=== PATIENT | male | born 1950 | race Caucasian/White ===

== ENCOUNTER 2018-06-11 10:55 | Inpatient (IN) ==
[2018-06-11] MEDS ORDERED: NITROGLYCERIN SL PRN (12:04)
[2018-06-11] MEDS ORDERED: ASPIRIN PO ONE (12:04)
[2018-06-11 12:15] LABS: BASO# 0.02 X1000 (0.0-0.2); BASO% 0.4 % (0.0-0.8); EOS# 0.14 X1000 (0.0-0.7); EOS% 2.8 % (0.0-10.0); HEMATOCRIT 45.1 % (42.0-52.0); HEMOGLOBIN 14.5 g/dL (14.0-18.0); LYMPH# 1.79 X1000 (1.2-3.4); LYMPH% 36.3 % (20.5-51.1); MCH 29.7 PG (27-31); MCHC 32.2 g/dL (33-37); MCV 92.2 FL (81-99); MONO# 0.66 X1000 (0.11-0.59); MONO% 13.4 % (1.7-9.3); MPV 10.8 FL (7.4-10.4); NEUT# 2.32 X1000 (1.4-6.5); NEUT% 47.1 % (42.2-75.2); PLT 179 X1000 (130-400); RBC 4.89 XMIL (4.7-6.1); RDW 15.1 % (11.5-14.5); WBC 4.93 X1000 (4.8-10.8)
--- NOTE | 2018-06-11 12:23 | EKG Report ---
Test Performed on : 06/11/2018 11:01:10 AM Test Reason : cp Blood Pressure : / mmHG Vent. Rate : 064 BPM Atrial Rate : 064 BPM P-R Int : 168 ms QRS Dur : 102 ms QT Int : 388 ms P-R-T Axes : 017 -15 059 degrees QTc Int : 400 ms Normal sinus rhythm. Minimal voltage criteria for LVH, may be normal variant Possible Anteroseptal infarct (cited on or before 21-APR-2011) Abnormal ECG When compared with ECG of 21-APR-2011 13:41, Questionable change in initial forces of Septal leads Unconfirmed Result
[2018-06-11 12:24] LABS: INR 0.9; PROTIME 12.9 Seconds (11.0-16.0); PTT 30.8 Seconds (22.3-41.8)
--- NOTE | 2018-06-11 12:24 | Diag Imaging Result Doc PS360 ---
CHEST-1 VIEW - 06/11/2018 INDICATION: cp COMPARISON: 09/15/2017 FINDINGS: The lungs are normally expanded and clear. Heart size and mediastinal contours are normal. No pneumothorax or pleural effusion. IMPRESSION: Negative exam. Electronically signed by Toi Au 06/11/2018 12:22 PM
[2018-06-11 12:36] LABS: AGAP 7; ALBUMIN 4.6 g/dL (3.5-5.0); ALKALINE PHOSPHATASE 35 U/L (32-122); BUN 8 mg/dL (8-22); CALCIUM 9.1 mg/dL (8.8-10.2); CHLORIDE 101 mmol/L (98-107); COSMO 281; CREATININE 0.8 mg/dL (0.7-1.2); ESTIMATED GFR > 60; GLUCOSE 95 mg/dL (70-104); GOT 19 U/L (10-34); GPT 11 U/L (10-44); SODIUM 142 mmol/L (136-145); TCO2 34 mmol/L (25-35); TOTAL BILIRUBIN 0.37 mg/dL (0.20-1.00); TOTAL PROTEIN 6.9 g/dL (6.3-8.3)
--- NOTE | 2018-06-11 14:28 | PROVIDER DOCUMENTATION ---
This chart was entered by Johanna Mercedes Scribe, acting as scribe for Dorian Simons MD. HPI-Chest Pain - General Chief Complaint: Chest Pain Stated Complaint: CHEST PAIN Time Seen by Provider: 06/11/18 11:12 Source: patient Allergies/Adverse Reactions: Patient Allergies Allergy/AdvReac Type Severity Reaction Status Date / Time No Known Allergies Allergy Verified 02/02/12 11:52 Home Medications: Home Medication List Medication Instructions Recorded Confirmed Last Taken Type Albuterol [Proventil] 4 mg PO TID PRN #30 tablet 02/02/12 Unknown Rx Hydrocodone/Acetaminophen [Lortab 1 each PO Q6H PRN #20 tablet 02/02/12 Unknown Rx 5-500 Tablet] Methylprednisolone [Medrol Dosepak] 4 mg PO DIRECTED #1 package 02/02/12 Unknown Rx Sulfamethoxazole/Trimethoprim 1 each PO BID #20 tablet 02/02/12 Unknown Rx [Bactrim Ds Tablet] - History of Present Illness-CP Nature of Presenting Problem: Patient is a 67 year old male who presents with chest pain that started yesterday. Denies radiation of pain and shortness of breath. States nausea. History of COPD. Reports taking a BC powder for pain this morning. Location: reports: central Chest Pain Radiation: reports: no radiation Quality of Pain: reports: pressure Severity in ED: mild Onset/Duration: 24 hours ago Timing: improving Context/Activities at Onset: reports: light activity Modifying Factors: improves with: nothing Associated Symptoms: reports: nausea Similar Symptoms Previously?: Yes Recently Seen Here or By Another Healthcare Provider: No Review of Systems - Adult - REVIEW OF SYSTEMS - ADULT Constitutional: reports: no symptoms reported. denies: chills, fever, fatique Eyes: reports: no symptoms reported Ears, Nose, Mouth & Throat: reports: no symptoms reported Cardiovascular: reports: see HPI, chest pain. denies: heart murmur, orthopnea Respiratory: reports: no symptoms reported Gastrointestinal: reports: see HPI, nausea. denies: abdominal pain, diarrhea, vomiting Genitourinary: reports: no symptoms reported Musculoskeletal: reports: no symptoms reported Integumentary: reports: no symptoms reported Neurological: reports: no symptoms reported Psychiatric: reports: no symptoms reported Endocrine: reports: no symptoms reported Hematologic/Lymphatic: reports: no symptoms reported Allergic/Immunologic: reports: no symptoms reported All Other Systems: Reviewed and Negative Past History - Adult - PAST MEDICAL HISTORY-ADULT Review of Records: reports: Nursing Assessment Review, Medications Reviewed, Social history reviewed & non-contributory. Major Childhood Illnesses: reports: denies history Cardiovascular: reports: denies history Respiratory: reports: denies history Gastrointestinal: reports: denies history Obstetrical/Gynecological: reports: denies history Genitourinary: reports: denies history Musculoskeletal: reports: denies history Neurological: reports: denies history Psychiatric: reports: denies history Endocrine/Immune: reports: denies history Other Conditions: reports: denies history - PRIOR SURGERIES/PROCEDURES Surgical/Procedure History: reports: tonsillectomy, orthopedic (extremity) (left foot) - IMMUNIZATION STATUS Childhood Immunizations: See Nurse Assessment Flu Vaccine: See Nurse Assessment - FAMILY HISTORY Family History: reviewed, not pertinent - SOCIAL HISTORY Smoking: cigarettes, greater than 1 pack/day Provider spent 3-5 mins advising pt. on dangers of tobacco.: Discussed manners to quit use, and f/u contacts for add'l counseling. Substance Use: denies Living Situation: family Physical Exam-General - PHYSICAL EXAM-ADULT Initial Vital Signs Reviewed: Yes - CONSTITUTIONAL General Appearance: alert, no apparent distress. negative: lethargic, slow to respond - HEAD, EARS, NOSE, MOUTH & THROAT HENMT: normal ENT inspection. negative: angioedema, hearing deficit - NECK Neck: normal inspection. negative: limited range of motion, tender midline - RESPIRATORY Respiratory: chest non-tender, lungs clear, normal breath sounds. negative: crackles, stridor - CARDIOVASCULAR Cardiovascular: normal peripheral pulses, regular rate, rhythm. negative: tachycardia, systolic murmur - GASTROINTESTINAL (ABDOMEN) Abdominal Exam: normal bowel sounds, non tender, soft. negative: rigid, rebound - MUSCULOSKELETAL Extremity: non-tender, normal inspection. negative: deformity, erythema - SKIN Integumentary: normal color, normal turgor, warm/dry. negative: ecchymosis, erythema, jaundice - NEUROLOGIC Neurologic: grossly normal. negative: aphasia, facial droop - PSYCHIATRIC Psych/Mental Status: normal mood/affect, oriented x 3. negative: tearful - HEART Score HEART Score: History: Moderately Suspicious HEART Score: ECG: Non-Specific Repolarization Disturbance/LBBB/PM HEART Score: Age: > or = 65 Years HEART Score: Risk Factors for Atherosclerotic Disease: 1 or 2 Risk Factors HEART Score: Troponin: < or = Normal Limit Total HEART Score:: 5 Progress - PLAN OF CARE/RESULTS Progress/Plan/Lab Results: Vital Signs - 8 hr 06/11/18 11:05 06/11/18 12:26 06/11/18 13:03 Temperature 97.7 F Pulse Rate 71 78 71 Respiratory Rate 20 21 17 Blood Pressure 162/84 108/74 123/85 O2 Sat by Pulse Oximetry 94 L 92 L 99 06/11/18 14:02 06/11/18 15:02 Temperature Pulse Rate 65 93 H Respiratory Rate 23 23 Blood Pressure 141/77 108/94 O2 Sat by Pulse Oximetry 97 96 Laboratory Results - last 24 hr 06/11/18 06/11/18 06/11/18 11:53 11:53 11:53 WBC 4.93 RBC 4.89 Hgb 14.5 Hct 45.1 MCV 92.2 MCH 29.7 MCHC 32.2 L RDW Std Deviation 15.1 H Plt Count 179 MPV 10.8 H Immature Gran % (Auto) 0.0 Neut % (Auto) 47.1 Lymph % (Auto) 36.3 Schleicher % (Auto) 13.4 H Eos % (Auto) 2.8 Baso % (Auto) 0.4 Immature Gran # (Auto) 0.00 Neut # (Auto) 2.32 Lymph # (Auto) 1.79 Schleicher # (Auto) 0.66 H Eos # (Auto) 0.14 Baso # (Auto) 0.02 PT INR PTT (Actin FS) Sodium 142 Potassium 5.0 Chloride 101 Carbon Dioxide 34 Anion Gap 7 BUN 8 Creatinine 0.8 Estimated GFR/1.73 m2 > 60 BUN/Creatinine Ratio 10 Glucose 95 Calculated Osmolality 281 Calcium 9.1 Total Bilirubin 0.37 AST 19 ALT 11 Alkaline Phosphatase 35 Troponin T Jcn-A-Ffiajsawlek Pept 90 Total Protein 6.9 Albumin 4.6 Globulin 2.3 Albumin/Globulin Ratio 2.0 06/11/18 06/11/18 11:53 11:53 WBC RBC Hgb Hct MCV MCH MCHC RDW Std Deviation Plt Count MPV Immature Gran % (Auto) Neut % (Auto) Lymph % (Auto) Schleicher % (Auto) Eos % (Auto) Baso % (Auto) Immature Gran # (Auto) Neut # (Auto) Lymph # (Auto) Schleicher # (Auto) Eos # (Auto) Baso # (Auto) PT 12.9 INR 0.90 PTT (Actin FS) 30.8 Sodium Potassium Chloride Carbon Dioxide Anion Gap BUN Creatinine Estimated GFR/1.73 m2 BUN/Creatinine Ratio Glucose Calculated Osmolality Calcium Total Bilirubin AST ALT Alkaline Phosphatase Troponin T < 0.010 Hms-A-Vnmdslrxwns Pept Total Protein Albumin Globulin Albumin/Globulin Ratio Orders Category Date Time Status [facility] Routine AdmDCTranf 06/11/18 15:57 Active Nursing- MD Consult Request ROUTINE Care 06/11/18 15:57 Active Update & Confirm Home Medicati ROUTINE Care 06/11/18 15:58 Active Physician/Provider Consults Routine Cons 06/11/18 15:57 Ordered Heart Healthy Diet Diet 06/11/18 14:44 Active CHEST-1 VIEW [RAD] Stat Exams 06/11/18 12:03 Completed A1C HGB W EST AVG GLUCOSE [CHEM] Routine Lab 06/12/18 06:00 Ordered CBC WITH ELECTRONIC DIFF [HEME] Stat Lab 06/11/18 11:53 Completed CK PROFILE [SP CHEM] Q8H Lab 06/11/18 16:04 Received CK PROFILE [SP CHEM] Q8H Lab 06/12/18 00:00 Ordered CK PROFILE [SP CHEM] Q8H Lab 06/12/18 08:00 Ordered COMPREHENSIVE METABOLIC PANEL [CHEM] Stat Lab 06/11/18 11:53 Completed PRO B-NATRIURETIC PEPTIDE Stat Lab 06/11/18 11:53 Completed PT [PROTIME WITH INR] [COAG] Stat Lab 06/11/18 11:53 Completed PTT [COAG] Stat Lab 06/11/18 11:53 Completed TROPONIN T Q8H Lab 06/11/18 16:04 Received TROPONIN T Q8H Lab 06/12/18 00:00 Ordered TROPONIN T Q8H Lab 06/12/18 08:00 Ordered TROPONIN T Stat Lab 06/11/18 11:53 Completed URINE DRUG SCREEN Stat Lab 06/11/18 15:59 Uncollected Acetaminophen [Tylenol] Med 06/11/18 15:57 Active 650 mg PO Q6H PRN PRN Albuterol 2.5MG/Ipratrop 0.5MG [Duoneb (A & A)] Med 06/11/18 19:30 Active 3 ml INH RTQ4H.WA Aspirin Med 06/11/18 12:04 Discontinued 325 mg PO NOW ONE Budesonide [Pulmicort] Med 06/11/18 19:30 Active 0.5 mg INH RTBID Enoxaparin [Lovenox] Med 06/11/18 16:00 Active 40 mg SUBQ Q24H Morphine Med 06/11/18 15:57 Active See Dose Instructions IV Q5M PRN PRN Nitroglycerin Med 06/11/18 15:57 Discontinued 0.5 inch TOP NOW ONE Nitroglycerin Sl [Nitroglycerin] Med 06/11/18 12:04 Active 0.4 mg SL Q5M PRN PRN Ondansetron [Zofran] Med 06/11/18 15:57 Active 4 mg IV Q4H PRN PRN Pantoprazole [Protonix] Med 06/11/18 16:00 Active 40 mg IV Q12H Sodium Chloride 0.9% Med 06/11/18 16:00 Active 10 ml INJ DIRECTED Aerosol Treatments Routine Oth 06/11/18 15:58 Active Aerosol Treatments Stat Oth 06/11/18 15:58 Active EKG [EKG] Stat Ther 06/11/18 12:03 Draft Echo Spec/Color Dop W/O Contra Routine Ther 06/11/18 15:57 Ordered Transfer/Admit Order [TRANSFER] Routine Transfer 06/11/18 15:52 Ordered Result Diagrams: 06/11/18 11:53 06/11/18 11:53 - REASSESSMENT Reassessment #1 Time Reassessed: 14:21 Status: other (patient's chest pain improved with nitro. patient's O2 sat dropped to 88% on room air while talking. patient was placed on 2 L nasal cannula.) - EKG 1 Time of EKG reading by physician:: 11:01 EKG Read and Signed by:: Dorian Simons EKG Interpretation (*Must complete 3 of following elements*): Abnormal Rate: 64 Rhythm: normal sinus rhythm QRS: LVH LA Interval: normal Comments: possible anteroseptal infarct, age undetermined 2 Time of EKG reading by physician:: 16:26 EKG Read and Signed by:: Dorian Simons EKG Interpretation (*Must complete 3 of following elements*): Abnormal Rate: 62 Rhythm: normal sinus rhythm LA Interval: normal Comments: cannot rule out anteroseptal infarct, age undetermined - XRAY 1 XRAY Study: Chest Impression: See EMR Report ( CHEST-1 VIEW - 06/11/2018 INDICATION: cp COMPARISON: 09/15/2017 FINDINGS: The lungs are normally expanded and clear. Heart size and mediastinal contours are normal. No pneumothorax or pleural effusion. IMPRESSION: Negative exam. Electronically signed by Toi Au 06/11/2018 12:22 PM 06/11/18 1222 Interpreting Physician: Toi Au MD Dictated Date/Time: 06/11/18 1221 cc: Dorian Simons MD; Mulu Duarte MD) - CONSULTS/PCP/HOSPITALIST Notification #1 *Consult/PCP/Hospitalist*: RAY German for Hospitalist Time Discussed: 14:20 Reason/Comments: Dr. Simons consulted with Monserrat about patient. Consult Disposition: Will see in ED, Admit Departure - Departure Date of Disposition Decision: 06/11/18 Time of Disposition Decision: 14:20 DIAGNOSIS: Chest pain, COPD (chronic obstructive pulmonary disease) Disposition: ADMITTED INPATIENT 09 Certified Medical Emergency: Emergent Condition: Stable - Critical Care Note This patient required my direct & personal management of CC.: Yes Total Time (mins): 31 Critical Care Statement: This patient required my direct personal management to treat or rule out processes, the absence of which, could potentiallly result in sudden, clinically significant life or limb threatening deterioration. Attestation - Physician/ ERIC Attestation Patient care was provided by Advanced Practice Provider:: No The physician spent face to face time with patient:: Yes Advanced Practice Provider documentation review:: Supervising physician onsite and consulted in the evaluation and care of this patient. The physician did have a face to face encounter with the patient. This chart was documented by the indicated scribe, (Johanna Mercedes Scribe) and accurately reflects the services I performed and decisions made by me, Dorian Simons MD, as attested by the provider's signature.
[2018-06-11] MEDS ORDERED: MORPHINE IV PRN (15:57)
[2018-06-11] MEDS ORDERED: ZOFRAN IV PRN (15:57)
[2018-06-11] MEDS ORDERED: TYLENOL PO PRN (15:57)
[2018-06-11] MEDS ORDERED: NITROGLYCERIN TOP ONE (15:57)
[2018-06-11] MEDS ORDERED: SODIUM CHLORIDE 0.9% INJ SCH (16:00)
--- NOTE | 2018-06-11 16:32 | HISTORY AND PHYSICAL ---
PRIMARY CARE PROVIDER: Mulu Duarte MD. CHIEF COMPLAINT: Chest pain. HISTORY OF PRESENT ILLNESS: Mr. David Cooper is a 67-year-old male with a medical history of COPD, BPH, low testosterone, seasonal allergies, and GERD, is here with complaints of chest pain that started yesterday around noon. It was in the center of his chest. It did not radiate. It was a 8/10. It made him nauseated and the only thing he was doing when it started was sitting on a stool. He had not just eaten, and it lasted around 1-1/2 hours. He did not feel good last night so he did not go to [employer]. He stayed home. He went to bed early. He normally wakes up around 4 in the morning and he woke around 4:30 this morning. Not too long after walking up, he started having on and off chest pains all day described as just like it was the day before. Both times, he took ibuprofen which helped a little, and he also took a BC Powder, which seemed to help ease it up as well. He presented here around 11 a.m., was given a nitroglycerin tablet, which actually made his pain relieve. Per the ER physician that gave report stated that when he was at the bedside the O2 saturations would drop down to about 88%. The patient states he is not on home oxygen. He does have expiratory wheezes throughout but essentially negative chest x-ray result. Cardiac enzymes are negative. EKG with no real contiguous ST elevations but will consult Cardiology and get him scheduled for a stress tomorrow. He was instructed how important it is to stop smoking. PAST MEDICAL HISTORY: 1. COPD. 2. BPH. 3. Low testosterone. He gets testosterone shots every 2 weeks, the last one was 2 weeks ago. 4. Seasonal allergies. 5. GERD. PAST SURGICAL HISTORY: 1. He had scrotal surgery. 2. Left foot surgery. 3. Right foot steroid injections. 4. Right knee scoped. SOCIAL HISTORY: 1 pack per day smoker since the age of 12, 1-2 beers about once a week. . They go to [employer]. 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 FAMILY HISTORY: Mother's side positive for dementia. Father's side positive for hypertension and myocardial infarction but age unknown, and lupus. ALLERGIES: Z-Escobar, according to him. He states it made his skin itch and turn red. HOME MEDICATIONS: No home medications, other than he actually takes testosterone shots every 2 weeks. Actually, he may have home medications, they just have not been reconciled yet. REVIEW OF SYSTEMS: A 14-point review of systems are complete and all were negative except for those mentioned above in HPI. PHYSICAL EXAMINATION: VITAL SIGNS: Temperature 97.7, heart rate 93, respiratory rate 23, blood pressure 108/94, O2 saturation 96% on room air. GENERAL: Mr. David Cooper is a 67-year-old male. He is in no acute distress. He is able to answer questions appropriately. HEENT: Atraumatic, normocephalic. Pupils equal, round, and reactive to light. Extraocular movements intact. Mucous membranes are moist. NECK: Trachea midline. CARDIOVASCULAR: S1, S2, regular rate and rhythm. No rubs, gallops, or murmurs. No lower extremity edema, +2 dorsalis and radial pulses. Negative JVD or carotid bruits. PULMONARY: Clear to auscultate, bilateral breath sounds. No accessory muscle use or work of breathing noted. GASTROINTESTINAL: Soft, nontender, nondistended, positive bowel sounds x4. EXTREMITIES: Moves all extremities equally with full range of motion. NEUROLOGIC: A and O x3, follows commands. Sensory is intact. SKIN: Warm, dry, intact. LABORATORY DATA: White blood cells 4000, hemoglobin 14, hematocrit 45, platelet count 179. INR 0.90. PTT is 30.8. Sodium 142, potassium 5.0, BUN 8, creatinine 0.8, glucose 95, calcium 9.1, bilirubin 0.37, AST 19, ALT 11. Troponin less than 0.01. ProBNP 90. Albumin 4.6. IMAGING: Chest x-ray: Negative exam. EKG: Normal sinus rhythm, rate 64, QTc is 400, does not look like any ST elevations that I could tell. ASSESSMENT AND PLAN: 1. Atypical chest pain. He had chest pain yesterday for about an hour and a half and he has it on and off today, it is all mid sternal, it does not radiate, eased up after ibuprofen and BC Powder, but also eased up after he received nitroglycerin tablet. So, we will consult Cardiology, do serial cardiac enzymes, do an echocardiogram, and a stress test for tomorrow morning. Routine cardiac workup. 2. Chronic obstructive pulmonary disease. Will add nebulizers. There is no obvious exacerbation at this time. 3. Gastroesophageal reflux disease. Will do IV Protonix in case this is GI related. 4. Deep venous thrombosis prophylaxis, Lovenox. Dictated by RAY Olson for Eric Hassan MD cc: RAY Olson MD
[2018-06-11] MEDS: DUONEB (A & A) INH SCH ×2 (19:30→23:46)
[2018-06-11] MEDS: PULMICORT INH SCH (19:30)
[2018-06-11] MEDS: LOVENOX SUBQ SCH (19:45)
[2018-06-11] MEDS: PROTONIX IV SCH (19:50)
[2018-06-11 20:28] LABS: UR AMPHETAMINES QUAL NONE DETECTED (NONE DETECT); UR BARBITUATES QUAL NONE DETECTED (NONE DETECT); UR BENZODIAZEPIN QUAL NONE DETECTED (NONE DETECT); UR CANNABINOIDS QUAL NONE DETECTED (NONE DETECT); UR COCAINE QUAL NONE DETECTED (NONE DETECT); UR METHADONE QUAL NONE DETECTED (NONE DETECT); UR OPIATES QUAL NONE DETECTED (NONE DETECT); UR OXYCODONE QUAL NONE DETECTED (NONE DETECT); UR PCP QUAL NONE DETECTED (NONE DETECT)
[2018-06-12] MEDS: PROTONIX IV SCH ×2 (03:49→16:05)
[2018-06-12 06:10] LABS: INR 0.98; PROTIME 13.7 Seconds (11.0-16.0)
[2018-06-12 06:11] LABS: BASO# 0.01 X1000 (0.0-0.2); BASO% 0.2 % (0.0-0.8); EOS# 0.09 X1000 (0.0-0.7); EOS% 1.9 % (0.0-10.0); HEMATOCRIT 39.2 % (42.0-52.0); HEMOGLOBIN 12.1 g/dL (14.0-18.0); LYMPH# 1.58 X1000 (1.2-3.4); LYMPH% 34.1 % (20.5-51.1); MCH 29.8 PG (27-31); MCHC 30.9 g/dL (33-37); MCV 96.6 FL (81-99); MONO# 0.53 X1000 (0.11-0.59); MONO% 11.4 % (1.7-9.3); MPV 10.5 FL (7.4-10.4); NEUT# 2.42 X1000 (1.4-6.5); NEUT% 52.4 % (42.2-75.2); PLT 154 X1000 (130-400); PTT 35.4 Seconds (22.3-41.8); RBC 4.06 XMIL (4.7-6.1); WBC 4.63 X1000 (4.8-10.8)
[2018-06-12 06:17] LABS: HEMOGLOBIN A1C 5.2 % (4.8-6.0)
[2018-06-12 06:24] LABS: AGAP 7; ALB/GLOB RATIO 1.5; ALBUMIN 3.7 g/dL (3.5-5.0); ALKALINE PHOSPHATASE 28 U/L (32-122); BUN 12 mg/dL (8-22); CALCIUM 8.5 mg/dL (8.8-10.2); CHLORIDE 106 mmol/L (98-107); CHOLESTEROL 145 mg/dL (0-200); COSMO 290; CREATININE 0.8 mg/dL (0.7-1.2); ESTIMATED GFR > 60; GLUCOSE 91 mg/dL (70-104); GOT 15 U/L (10-34); GPT 10 U/L (10-44); HDL 38 mg/dL (35-55); LDL 85 mg/dL; MAGNESIUM 1.9 mg/dL (1.5-2.7); POTASSIUM 4.3 mmol/L (3.5-5.1); SODIUM 146 mmol/L (136-145); TCO2 33 mmol/L (25-35); TOTAL BILIRUBIN 0.29 mg/dL (0.20-1.00); TOTAL PROTEIN 6.2 g/dL (6.3-8.3); TRIGLYCERIDES 108 mg/dL (39-160); VLDL 22 mg/dL
--- NOTE | 2018-06-12 07:09 | EKG Report ---
Test Performed on : 06/11/2018 4:26:56 PM Test Reason : ED. NO EKG ORDER FOR MUSE Blood Pressure : / mmHG Vent. Rate : 062 BPM Atrial Rate : 062 BPM P-R Int : 180 ms QRS Dur : 088 ms QT Int : 392 ms P-R-T Axes : -25 -09 036 degrees QTc Int : 397 ms Normal sinus rhythm. Cannot rule out Anteroseptal infarct (cited on or before 21-APR-2011) Abnormal ECG When compared with ECG of 11-JUN-2018 11:01, (Unconfirmed) No significant change was found Unconfirmed Result
--- NOTE | 2018-06-12 08:11 | EKG Report ---
Test Performed on : 06/12/2018 06:41:54 AM Test Reason : chest pain Blood Pressure : / mmHG Vent. Rate : 061 BPM Atrial Rate : 061 BPM P-R Int : 180 ms QRS Dur : 098 ms QT Int : 420 ms P-R-T Axes : 044 031 059 degrees QTc Int : 422 ms Normal sinus rhythm. Anterior infarct (cited on or before 21-APR-2011) Abnormal ECG When compared with ECG of 11-JUN-2018 16:26, (Unconfirmed) No significant change was found Confirmed by Neo HARDIN, Jos ([id number]) on 06/12/2018 8:43:09 AM
--- NOTE | 2018-06-12 08:21 | Diag Imaging Result Doc PS360 ---
CHEST-2 VIEWS - 06/12/2018 INDICATION: Chest Pain COMPARISON: 06/11/2018 FINDINGS: The lungs are normally expanded and clear. Heart size and mediastinal contours are normal. No pneumothorax or pleural effusion. IMPRESSION: Negative exam. Electronically signed by Toi Au 06/12/2018 8:19 AM
[2018-06-12] MEDS: PULMICORT INH SCH ×2 (08:31→20:20)
[2018-06-12] MEDS: DUONEB (A & A) INH SCH ×5 (08:31→23:39)
--- NOTE | 2018-06-12 10:36 | Diag Imaging Result Doc PS360 ---
EXAM: CT THORAX W/O CONTRAST INDICATION: COPD/fci smoker TECHNIQUE: This exam was performed using automated exposure control, adjustment of mA or kV according to patient size, and/or use of iterative reconstruction technique. COMPARISON: None. FINDINGS: There is advanced pulmonary emphysema. There is subsegmental atelectasis and/or scarring at the lung bases. There is a 4 mm slightly nodular density in the left upper lobe on image 61 of series 3. This probably represents nodular scarring are minimal focal pneumonitis. Consider follow-up based on Fleischner Society criteria given the advanced emphysema. There is a second 5 mm somewhat groundglass nodular density in the right middle lobe on image 89 of series 3. There is no pleural fluid collection and no pneumothorax. There is no evidence of significant mediastinal lymphadenopathy. There is no cardiomegaly. There is mild atherosclerotic calcification at the aortic arch and coronary arteries. Limited views of the upper abdomen are essentially unremarkable. IMPRESSION: 1.Advanced pulmonary emphysema. 2.Minimal subsegmental atelectasis and/or scarring at the lung bases. 3.A couple of indeterminate subcentimeter nodules in the right middle lobe and left upper lobe as described. Consider follow-up based on Fleischner Society criteria. Electronically signed by Hayder Kruger 06/12/2018 10:34 AM
--- NOTE | 2018-06-12 10:51 | CARDIOLOGY CONSULTATION ---
DATE: 06/12/2018 REQUESTED PHYSICIAN: Hospitalist service. REASON FOR CONSULTATION: Chest pain. HISTORY: Mr. Cooper is a 67-year-old, male, who was in his usual state of health until June 10. 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 At about 12 noon, he developed a sharp pain associated with pressure in the lower anterior chest close to the sternal tip. At that time, he did not pay too much attention to it, he thought it was indigestion. He ate. Later on, he felt somewhat nauseous. Initially he felt like he was going to go to attend sikhism; however, after eating supper, he did not feel well, the pain came back and decided to rest. The next morning, he got up and felt fine. He went to get dressed and after getting dressed, he started having pain again and at that time, he took ibuprofen, took a nap, rested for a couple of hours and when he got up again, there was chest pain. At that time, he called his and they decided to come to the emergency room. He presented to the ER somewhere around 11:30 in the morning. They did a chest x- ray that shows no abnormalities. They did an EKG that shows questionable of septal scar, no acute ST changes. His troponins have been checked multiple times, 3, beginning at 11:53 in the morning on June 11, ending at midnight on June 12. All those numbers are negative. They have checked proBNP level twice, both are normal. BUN and creatinine are normal. His LDL cholesterol is 85, total cholesterol 145, HDL is 38, triglycerides 108. He is hemoglobin 12.1. The patient is feeling right now back to his normal self. I am seeing him on June 12 at 9:10 in the morning. He is chest pain-free. The primary service has requested a stress test on him. PAST MEDICAL HISTORY: Only positive for headaches and sinus allergies. PAST SURGICAL HISTORY: He broke his ankle or heel on the left side several years ago, had to wear a cast. No other major positive on his past history. SOCIAL HISTORY: He has been a smoker since he was 12 years old and at times he has smoked more than a pack a day. Currently he is smoking 1 pack a day, so he is like 43 years of smoking. He drinks occasionally beer. He is . He has 4 children with his with whom he has been to for 44 years. He also has 2 children from 2 other women. FAMILY HISTORY: Father of cancer. Mother of dementia. HOME MEDICATIONS: At this time he is not taking anything. ALLERGIES: Negative. REVIEW OF SYSTEMS: He has slowed down over the course of the years. Physically he gets more tired recently. He does not have exertional chest pain or significant exertional dyspnea. No other positives on his multiple systems check. The other thing that bothers him frequently is headaches. Dr.Sarah Duarte has been dealing with that. PHYSICAL EXAMINATION: Vital signs: Blood pressure is 99/56, temperature 97.6 degrees, pulse 65, respirations 16. General: He is awake, alert, oriented, in no distress. HEENT: Unremarkable. Chest: Clear to auscultation and percussion. Heart: Sounds regular and rhythmic. No gallop or murmur. Abdomen: Nontender, soft. Extremities: Show good pulses. No peripheral edema. Neurologic: Nonfocal. Moves 4 extremities. IMPRESSION: 1. Patient presenting with chest pain which is somewhat atypical. He has ruled out for myocardial infarction. His pro BNP level is normal. 2. Clinical evidence of chronic obstructive pulmonary disease. Both lungs show decreased breath sounds with hyperinflation hyper-resonance to percussion. 3. Long-term tobacco user. 4. Abnormal ECG with a question septal scar. RECOMMENDATION: At this time I agree with proceeding with a stress test using myocardial perfusion protocol. I will probably suggest to do a screening CT of the chest on him because of his long-term history of a smoker. Echocardiogram is probably a good idea to compliment the nuclear stress test. Further advice will be forthcoming. cc: Rhys Kenney MD MTDD
[2018-06-12] MEDS ORDERED: LEXISCAN ONE (11:33)
[2018-06-12] MEDS ORDERED: AMINOPHYLLINE ONE (11:40)
--- NOTE | 2018-06-12 14:01 | Diag Imaging Result Document ---
PROCEDURE NAME: MYOCARDIAL PERF SCAN, STR/REST - 06/12/2018 INDICATION FOR STUDY: Chest pain. PROCEDURES PERFORMED: 1. Lexiscan stress. 2. One-day stress rest myocardial perfusion imaging. PROCEDURE IN DETAIL: Mr. Cooper had a resting study with injection of 11.2 mCi of technetium-99m sestamibi with usual imaging protocol utilized. Subsequently, he was brought back and had a Lexiscan stress. At peak stress, was injected with 33.5 mCi of technetium-99m sestamibi with usual imaging protocol utilized. FINDINGS: LEXISCAN STRESS RESULTS: 1. Baseline EKG shows sinus bradycardia, suggestion of anterior septal Q-waves, possible LVH. 2. Lexiscan stress did not demonstrate any evidence of significant ischemic changes or significant arrhythmias. PERFUSION IMAGING RESULTS: 1. No evidence of abnormal extracardiac uptake. 2. TID ratio 0.94. 3. Perfusion imaging demonstrates what appears to be no clear evidence of ischemic type defects. There is a suggestion of some very mild soft tissue attenuation in the inferior base. Wall motion appears to be intact in this area. In addition, there is a little bit of gut uptake interfering with interpretation in that area. There are no ischemic changes. 4. Normal ejection fraction of 71%. The end-diastolic volume is 142, end systolic volume 41. Normal wall motion. cc: MD Monserrat Menendez CRNP
[2018-06-12] MEDS: LOVENOX SUBQ SCH (15:48)
--- NOTE | 2018-06-12 17:13 | PROGRESS NOTE ---
DATE: 06/12/2018 SUBJECTIVE: Patient resting in bed. OBJECTIVE: Vital signs: Temperature 97.7 degrees, pulse 63, respirations 16, blood pressure 107/57, oxygen saturation 98%. HEENT: Atraumatic, normocephalic. Cardiovascular: S1, S2. Respiratory: Has evidence of good entry bilaterally. Abdomen: Soft, nontender. No masses felt. Extremities: No evidence of edema. Central nervous system: No obvious focal deficits noted. LABORATORY DATA: WBC [*], hematocrit is 39.2 with a platelet count of 154,000. Sodium is 146, potassium 4.3, chloride is 102, [*] BUN is 12, creatinine 0.8. ASSESSMENT AND PLAN: 1. Atypical chest pain. The patient's cardiac stress test seems to be within normal limits. 2D echocardiogram of the heart. Chest CT shows a couple of indeterminate subcentimeter nodules in the right middle lobe as well as the left upper lobe. We will consult with the pulmonary team with regards to that. 2. Chronic obstructive pulmonary disease. Maintain patient on nebulized bronchodilators as needed. 3. Gastroesophageal reflux disease. PPI. 4. Deep vein thrombosis prophylaxis. Lovenox. cc: Eric Hassan MD
[2018-06-13] MEDS: PROTONIX IV SCH (03:48)
[2018-06-13] MEDS: DUONEB (A & A) INH SCH (08:31)
[2018-06-13 11:37] VITALS: BP 135/71
--- NOTE | 2018-06-13 16:11 | DISCHARGE SUMMARY ---
ADMISSION DATE: 06/11/2018 DISCHARGE DATE: 06/13/2018 DISPOSITION: Home. FOLLOWUP: 1. Dr. Mulu Duarte. 2. Dr. Randolph. 3. Dr. Sandoval. CONSULTATION DURING THIS ADMISSION: None. IMAGING STUDIES OF SIGNIFICANCE: 1. Chest x-ray was negative on admission. A repeat chest x-ray was negative. 2. A myocardial perfusion scan shows an ejection fraction of 71%. No clear evidence of ischemic changes. 3. A CT scan of the chest did show advanced pulmonary emphysema, minimal atelectasis, intermediate subcentimeter nodules in the right middle lobe and the left upper lobe. ADMISSION DIAGNOSES: 1. Atypical chest pain. 2. Chronic obstructive pulmonary disease. 3. Gastroesophageal reflux disease. DISCHARGE DIAGNOSES: 1. Atypical chest pain with unremarkable EKG, troponins and stress test. This is presumed to be noncardiac in origin. 2. Chronic obstructive pulmonary disease. 3. Active tobacco use and abuse. 4. Gastroesophageal reflux disease. 5. Intermediate subcentimeter lung nodules. The patient is advised to follow up with Pulmonary Medicine. PRESENTING COMPLAINT: Chest pain. HISTORY OF PRESENTING COMPLAINT: Mr. Cooper is a 67-year-old male with a history of COPD, GERD, seasonal allergies and active tobacco abuse, came to the emergency department because of chest pain which, according to him, was retrosternal, was about 8/10, that made him nauseated. The patient was admitted for cardiac risk stratification. HOSPITAL COURSE: Troponins were trended 4 times, were negative. A repeat EKG did not show any changes. Cardiology was consulted and patient was seen by Dr. Kenney. A stress test was ordered which was negative and a CT scan only showed severe emphysema. We did discuss about tobacco cessation; however, Mr. Cooper is with the belief that the smoking is not what is causing his COPD and that smoking does not kill anybody and that we will not be successful letting him quit smoking. His chest pain, however, is completely resolved. We presume there is a GI component to this and he has been advised to follow up with his GI doctor, Dr. Randolph. He has also been started on PPI. This morning he feels a lot better. He denies any more complaints. PHYSICAL EXAMINATION: Current vital signs: Blood pressure is 135/71, pulse is 60, respiration is 18, temperature 97.5 degrees. The patient's physical exam is unremarkable. DISCHARGE INSTRUCTIONS: All the discharge instructions have been discussed with him and he voiced understanding. We did stress on the need for tobacco cessation anyway. TIME SPENT FOR DISCHARGE: 37 minutes. cc: Waldo Lomas MD
--- NOTE | 2018-06-13 18:13 | CONSULTATION ---
DATE OF CONSULTATION: 06/13/2018 REQUESTING PROVIDER: Dr. Eric Hassan. REASON FOR CONSULTATION: Lung nodules. HISTORY OF PRESENT ILLNESS: This is a 67-year-old male with a medical history of COPD with ongoing tobacco abuse, benign prostatic hyperplasia, hypogonadism, seasonal allergies and gastroesophageal reflux disease. He presented to the ER on 06/11/2018 with acute chest pain for 1 day. Initial workup in the ER was nonsignificant, but chest CT on 06/12/2018 showed two subcentrimeter pulmonary nodules. At the time of my examination patient is lying in the bed comfortably with no acute respiratory distress noted. His is at the bedside. Patient reports no more chest pain since yesterday. He states he is fine and he has no complaint at this time. He did reports he has chronic cough which comes and goes with some thick creamy sputum at times. He has no palpitation, wheezing, significant weight change, nausea or dizziness. He states he is eager to go home and he refuses to quit smoking at this time because he does not believe that smoking can affect his health. PAST MEDICAL HISTORY: 1. COPD with ongoing tobacco abuse. 2. Benign prostatic hyperplasia. 3. Hypogonadism. He gets testosterone shots every 2 weeks. The last 1 was 2 weeks ago. 4. Seasonal allergies. 5. Gastroesophageal reflux disease. 6. Scrotal surgery. 7. Left foot surgery. 8. Right foot steroid injections. 9. Right knee scoped. SOCIAL HISTORY: The patient is and lives with his family. He smokes 1 pack per day since age of 13. He drinks occasionally, has no history of illicit drug use. FAMILY HISTORY: Positive for dementia, hypertension, myocardial infarction, lupus and brain tumor. ALLERGIES: Z-Escobar. REVIEW OF SYSTEMS: A 10-point review of systems was conducted and the pertinent is listed within the HPI, otherwise noncontributory. PHYSICAL EXAMINATION: Vital Signs: Temperature 98, blood pressure 138/66, pulse 61, respiratory rate 18, oxygen saturation 90% on room air. General: The patient appears chronically ill and older than stated age. He is lying in bed in no acute respiratory distress noted. The patient's is at the bedside. HEENT: Atraumatic, trachea midline. Mucosa pink and moist. Respiratory: Even and unlabored. Symmetrical excursion. Auscultation reveals diminished breathing sounds bibasilarly with prolonged expiratory phase and bilateral expiratory wheezing. Cardiovascular: Regular rate and rhythm with no murmur noted. Gastrointestinal: Normoactive bowel sounds in all 4 quadrants. Soft, nondistended, nontender. Extremities: No pedal edema, no cyanosis, no clubbing. Dorsalis pedis 1+ bilaterally. Neurologic: Alert, oriented x3. Speech fluent. Follows commands. IMAGING DATA: Chest CT on 06/12/2018 revealed advanced pulmonary emphysema, minimal subsegmental atelectasis and/or scaring at the lung bases. A couple of indeterminant subcentimeter nodules in the right middle lobe and left upper lobe. ASSESSMENT AND PLAN: This is a 67-year-old male with medical history of chronic obstructive pulmonary disease with ongoing tobacco abuse, benign prostatic hyperplasia, hypogonadism, seasonal allergies, gastroesophageal reflux disease. He has been admitted to the medical floor with atypical chest pain since 06/11/2018. 1. Pulmonary nodules. CT on 06/12/2018 detected 2 pulmonary nodules one 4 mm in the left upper lobe which probably represents nodular scarring and the other 5 mm in the right middle lobe which is somewhat ground glass. No evidence of significant mediastinal lymphadenopathy. Will follow outpatient with CT in 3 to 6 months, if unchanged consider CT in 2 and 4 years. 2. Chronic obstructive pulmonary disease with advanced emphysema and ongoing tobacco abuse. Continue short-acting bronchodilators at discharge. Recommend to perform PFT outpatient and follow up with molecular modeler routinely. Educate on the importance of smoking cessation. Patient states that he is not interested at this time. 3. Atypical chest pain. Myocardial perfusion scan is nonsignificant. 4. Continue GI and DVT prophylaxis. 5. Further recommendations pending hospital course. Thank you for the courtesy of this consult. Dictated by RAY Parker for Jammie Sandoval MD cc: RAY Parker MD [facility]
--- NOTE | 2018-06-17 16:17 | ECHO REPORT ---
ORDER DATE: 06/11/2018 INTERPRETING PHYSICIAN: Dr. Luis Lujan ECHOCARDIOGRAPHIC MEASUREMENTS: 1. Interventricular septum: 1.3 cm. 2. Posterior wall: 1.4 cm. 3. Diastolic diameter: 4.2 cm. 4. Left atrium: 4.3 cm. SUMMARY OF THE 2-DIMENSIONAL IMAGIN. Pulmonic valve was normal. 2. Tricuspid valve was normal. 3. Normal left ventricular cavity size. Concentric left ventricular hypertrophy. Estimated ejection fraction of 60%. 4. Mitral valve was normal. 5. There is mild mitral regurgitation. 6. There is diastolic dysfunction. 7. Peak velocity across the aortic valve less than 2 m/sec. There is no aortic stenosis or regurgitation. 8. There is mild tricuspid regurgitation. Peak velocity across the tricuspid valve was less than 2 m/sec. 9. There is no pericardial effusion or obvious intracardiac mass or thrombus seen. cc: MD Monserrat Sloan CRNP
== END 2018-06-13 14:08 | disposition home or self-care (01) | DRG 313 ==
LOC: ED 10:55 → EDIPHOLD 16:27 → SUATTDRO 16:27 → 4N 20:03
PROVIDERS: ATTEND Internal Medicine
CPT/HCPCS: 71010; 71020; 71045; 71046; 71250; 78452; 80053; 80061; 80101; 80301; 80307; 80324; 80345; 80346; 80353; 80358; 80361; 80365; 82550; 83036; 83735; 83880; 83992; 84484; 85025; 85610; 85730; 93005; 93010; 93017; 93306; 94640; 94761; 99285; A9270; A9500; C9113; G0431; G0434; G0479; G0480; J0280; J0820; J1650; J2270; J2785; S0164